=== PATIENT | female | born 1990 | race Two or more races ===

== ENCOUNTER 2022-02-15 12:24 | Observation (INO) | payer OTHER ==
[2022-02-15 15:17] LABS: BASOPHILS % 0.2 % (0.0-2.0); EOSINOPHILS % 0.8 % (0.0-5.0); HEMATOCRIT. 29.5 % (36.0-48.0); HEMOGLOBIN. 9.7 g/dL (12.0-16.0); LYMPHOCYTES % 17.9 % (20.0-50.0); MEAN CORPUSCULAR HEMOGLOBIN 27.8 pg (28.0-32.0); MEAN CORPUSCULAR VOLUME 84.4 fL (81.0-99.0); MEAN PLATELET VOLUME 9.6 fl (7.4-10.4); MONOCYTES % 6.3 % (2.0-8.0); NEUTROPHILS % 74.8 % (40.0-76.0); PLATELET 272 x1000/uL (130-400); RED BLOOD CELL COUNT 3.49 mill/uL (4.2-5.4); RED CELL DISTRIBUTION WIDTH 14.7 % (11.6-14.6)
[2022-02-15 15:21] LABS: CHLORIDE 105 mEq/L (98-107)
[2022-02-15 16:01] LABS: CLARITY URINE CLEAR (CLEAR); COLOR URINE YELLOW (YELLOW); KETONES URINE TRACE (NEGATIVE); LEUKOCYTE ESTERASE URINE TRACE (NEGATIVE); NITRITE URINE NEGATIVE (NEGATIVE); OCCULT BLOOD URINE NEGATIVE (NEGATIVE); PROTEIN URINE 1+ (NEGATIVE); SPECIFIC GRAVITY URINE 1.028 (1.005-1.030)
== END 2022-02-15 15:50 | disposition home or self-care (01) ==
LOC: INTOOBSV 12:24 → L&D 12:24 → 8 EST A/PP 12:51
PROVIDERS: ADMIT Obstetrics & Gynecology; ATTEND Obstetrics & Gynecology
DX: O99.891 Other specified diseases and conditions complicating pregnancy (principal); M54.9 Dorsalgia, unspecified; R10.30 Lower abdominal pain, unspecified; O26.892 Other specified pregnancy related conditions, second trimester; R42 Dizziness and giddiness; Z3A.26 26 weeks gestation of pregnancy
CPT/HCPCS: 36415; 59025; 76805; 80053; 81003; 85025; 96360; 96361; G0378; 99281